=== PATIENT | male | born 1995 | race Caucasian/White ===

== ENCOUNTER 2016-07-23 02:54 | Emergency (ER) | payer OTHER ==
[~2016-07-23] VITALS: Ht 175.3 cm; Wt 88.5 kg
[~2016-07-23 02:54] MED LIST: ANTIVERT25 MG PO; CONCERTA27 MG PO; FLEXERIL10 MG PO; IBUPROFEN600 MG PO; INDOCIN25 MG PO; MOTRIN800 MG PO; NAPROSYN500 MG PO; NOHOMEMEDS; NORCO 5/3251 TABLET PO; PERCOCET 5/31 TABLET PO; RISPERDAL; SUBOXONE 8 MG-1 EAC2 SL; TETRACYCLINE; ULTRAM50 MG PO; VALIUM5 MG PO; VIVANZ
[2016-07-23] MEDS ORDERED: NORCO 5/3251 TABLET PO (04:40)
[2016-07-23 04:49] VITALS: BP 116/52
== END 2016-07-23 05:00 | disposition home or self-care (01) ==
LOC: EME 02:54
DX: S02.2XXA Fracture of nasal bones, initial encounter for closed fracture (principal); M79.641 Pain in right hand; F17.200 Nicotine dependence, unspecified, uncomplicated; Y04.0XXA Assault by unarmed brawl or fight, initial encounter; Z71.6 Tobacco abuse counseling
CPT/HCPCS: 70450; 70486; 73130; 99281; 99284

== ENCOUNTER 2016-12-03 17:28 | Emergency (ER) | payer OTHER ==
[~2016-12-03] VITALS: Ht 175.3 cm; Wt 76.2 kg
[2016-12-03 19:16] LABS: EOSINOPHIL (%) 0.9 % (0-5); EOSINOPHIL COUNT 0.1 K/uL (0-0.3); HEMATOCRIT 38.2 % (38.0-50.0); IMMATURE GRANULOCYTE (%) 0.2 % (0.0-0.7); INSTRUMENT ABS NEUTROPHIL CT 7.1 K/uL; MCH 29.5 PG (29.0-34.0); MCV 89.5 FL (86-99); MONOCYTE (%) 9.8 % (3-12); NEUTROPHIL (%) 69.6 % (45-76); NEUTROPHIL COUNT 7.1 K/uL (1.8-6.4); PLATELET COUNT 251 K/uL (156-360); RBC DIS.WIDTH-CV 12.8 % (11.8-14.6); RBC DIS.WIDTH-SD 42.2 % (39-53); RED BLOOD COUNT 4.27 M/uL (4.00-5.50); WHITE BLOOD COUNT 10.2 K/uL (4.1-10.2)
[2016-12-03 19:28] LABS: CHLORIDE 105 mEq/L (99-109); POTASSIUM 3.6 mEq/L (3.7-5.4); SODIUM 140 mEq/L (136-147)
[2016-12-03 19:31] LABS: GLUCOSE 84 mg/dL (70-99)
[2016-12-03 19:32] LABS: ANION GAP 9 MEQ/L (2-14)
[2016-12-03 19:33] LABS: TOTAL BILIRUBIN 0.7 mg/dL (0.0-1.0)
[2016-12-03 19:34] LABS: ALKALINE PHOSPHATASE 50 IU/L (3-129); GFR ESTIMATE (CALCULATED) > 59 mL/min/; SERUM ETHYL ALCOHOL < 10 mg/dL
[2016-12-03 19:35] LABS: UREA NITROGEN (BUN) 14 mg/dL (9-23)
[2016-12-03 21:20] VITALS: BP 131/56
== END 2016-12-03 21:20 | disposition home or self-care (01) ==
LOC: EME 17:28
PROVIDERS: Emergency Medicine
DX: S09.8XXA Other specified injuries of head, initial encounter (principal); S60.221A Contusion of right hand, initial encounter; F13.10 Sedative, hypnotic or anxiolytic abuse, uncomplicated; F10.99 Alcohol use, unspecified with unspecified alcohol-induced disorder; F11.90 Opioid use, unspecified, uncomplicated; F14.90 Cocaine use, unspecified, uncomplicated; S10.91XA Abrasion of unspecified part of neck, initial encounter; S00.03XA Contusion of scalp, initial encounter; Y09 Assault by unspecified means; F17.200 Nicotine dependence, unspecified, uncomplicated
CPT/HCPCS: 70450; 73130; 80053; 85025; 90837; 99281; 99284; G0480

== ENCOUNTER 2017-04-07 07:00 | Emergency (ER) | payer OTHER ==
[~2017-04-07] VITALS: Ht 175.3 cm; Wt 71.2 kg
[2017-04-07 07:33] LABS: MCH 30.2 PG (29.0-34.0); MCHC 33.8 G/DL (30.0-36.0); MCV 89.4 FL (86-99); MEAN PLAT.VOLUME 8.8 uM^3 (9.0-12.4); PLATELET COUNT 257 K/uL (156-360); RBC DIS.WIDTH-SD 39.1 % (39-53); RED BLOOD COUNT 4.14 M/uL (4.00-5.50); WHITE BLOOD COUNT 9.4 K/uL (4.1-10.2)
[2017-04-07 07:52] LABS: CHLORIDE 103 mEq/L (99-109); POTASSIUM 3.5 mEq/L (3.7-5.4); SODIUM 141 mEq/L (136-147)
[2017-04-07 07:53] LABS: GLUCOSE 106 mg/dL (70-99)
[2017-04-07 07:55] LABS: ANION GAP 14 MEQ/L (2-14)
[2017-04-07 07:57] LABS: GFR ESTIMATE (CALCULATED) > 59 mL/min/; SERUM ETHYL ALCOHOL 119 mg/dL
[2017-04-07 07:58] LABS: UREA NITROGEN (BUN) 10 mg/dL (9-23)
[2017-04-07 09:24] LABS: ADD MIUA? NO; BILIRUBIN NEGATIVE; BLOOD NEGATIVE; COLOR YELLOW ((YELLOW)); GLUCOSE (STRIP) NEGATIVE; KETONES NEGATIVE; LEUKOCYTES NEGATIVE; NITRITE NEGATIVE; PROTEIN (STRIP) NEGATIVE; SPECIFIC GRAVITY 1.011 (1.000-1.030); UCUL ADDED? NO; UROBILINOGEN 0.2 MG/DL (0.2-1.0)
[2017-04-07 09:36] LABS: AMPHETAMINE NEGATIVE (500 ng/mL); BARBITURATES NEGATIVE (200 ng/mL); BENZODIAZEPINES PRESUMPTIVE POSITIVE (150 ng/mL); COCAINE PRESUMPTIVE POSITIVE (150 ng/mL); INTERNAL CONTROLS VALID? YES; METHADONE PRESUMPTIVE POSITIVE (200 ng/mL); METHAMPHETAMINE NEGATIVE (500 ng/mL); OPIATES (MORPHINE) PRESUMPTIVE POSITIVE (100 ng/mL); OXYCODONE NEGATIVE (100 ng/mL); PHENCYCLIDINE NEGATIVE (25 ng/mL); PROPOXYPHENE NEGATIVE (300 ng/mL); THC CANNABINOIDS NEGATIVE (50 ng/mL); TRICYCLIC ANTIDEPRESSANTS NEGATIVE (300 ng/mL)
[2017-04-07 09:37] LABS: ADD MEDTOX COMMENT Y
[2017-04-07 10:22] VITALS: BP 116/48
[2017-04-07 10:26] LABS: BENZODIAZEPINES, URINE SCREEN POSITIVE (200 ng/mL)
== END 2017-04-07 10:23 | disposition home or self-care (01) ==
LOC: EME 07:00
PROVIDERS: Nurse Practitioner Family
DX: F19.10 Other psychoactive substance abuse, uncomplicated (principal); R51 Headache; M54.2 Cervicalgia; R10.9 Unspecified abdominal pain; M54.9 Dorsalgia, unspecified; Y09 Assault by unspecified means; Y07.59 Other non-family member, perpetrator of maltreatment and neglect; F17.200 Nicotine dependence, unspecified, uncomplicated
CPT/HCPCS: 70450; 71010; 72125; 72128; 80048; 81003; 84999; 85027; 99281; 99284; G0480

== ENCOUNTER 2017-07-23 04:37 | Emergency (ER) | payer OTHER ==
[~2017-07-23] VITALS: Ht 175.3 cm; Wt 80.1 kg
[2017-07-23 06:38] VITALS: BP 154/88
== END 2017-07-23 06:38 | disposition home or self-care (01) ==
LOC: EME 04:37
PROC: 2W3CX1Z Immobilization of Right Lower Arm using Splint (ICD-10-PCS; principal; 2017-07-23)
DX: S60.221A Contusion of right hand, initial encounter (principal); S63.501A Unspecified sprain of right wrist, initial encounter; Y04.0XXA Assault by unarmed brawl or fight, initial encounter
CPT/HCPCS: 73110; 73130; 99281; 99284

== ENCOUNTER 2017-08-17 23:46 | Emergency (ER) | payer OTHER ==
[~2017-08-17] VITALS: Ht 175.3 cm; Wt 76.5 kg
[2017-08-18 01:33] VITALS: BP 118/84
== END 2017-08-18 01:37 | disposition home or self-care (01) ==
LOC: EME → EDBD 23:46 → EME 23:46
DX: S61.412A Laceration without foreign body of left hand, initial encounter (principal); G62.9 Polyneuropathy, unspecified; X99.1XXA Assault by knife, initial encounter; Y07.411 Sister, perpetrator of maltreatment and neglect; Z23 Encounter for immunization; B19.20 Unspecified viral hepatitis C without hepatic coma; F90.9 Attention-deficit hyperactivity disorder, unspecified type; F41.9 Anxiety disorder, unspecified; F17.200 Nicotine dependence, unspecified, uncomplicated
CPT/HCPCS: 99281; 99284

== ENCOUNTER 2018-01-09 22:49 | Emergency (ER) | payer OTHER ==
[~2018-01-09] VITALS: Ht 175.3 cm; Wt 76.9 kg
[2018-01-10] MEDS ORDERED: AUGMENTIN875 MG PO (00:01)
[2018-01-10 00:02] VITALS: BP 140/93
== END 2018-01-10 00:05 | disposition home or self-care (01) ==
LOC: EME 22:49
DX: S60.221A Contusion of right hand, initial encounter (principal); S60.511A Abrasion of right hand, initial encounter; Y09 Assault by unspecified means; F17.200 Nicotine dependence, unspecified, uncomplicated
CPT/HCPCS: 73130; 99281; 99283